=== PATIENT | male | born 1985 | race Caucasian/White ===

== ENCOUNTER 2017-12-29 04:02 | Emergency (ER) | payer MEDICAID ==
[~2017-12-29] VITALS: Ht 177.8 cm; Wt 81.8 kg
[2017-12-29 04:05] VITALS: BP 128/78
[2017-12-29] MEDS ORDERED: acetaminophen 325mg tablet PO ONE (04:45)
== END 2017-12-29 05:23 | disposition home or self-care (01) ==
LOC: ER 04:02
DX: M25.551 Pain in right hip (principal); F15.10 Other stimulant abuse, uncomplicated; F17.200 Nicotine dependence, unspecified, uncomplicated; F10.10 Alcohol abuse, uncomplicated; W17.89XA Other fall from one level to another, initial encounter; Y93.89 Activity, other specified; Y92.89 Other specified places as the place of occurrence of the external cause; Y99.8 Other external cause status
CPT/HCPCS: 72170; 99284